=== PATIENT | female | born 1990 | race Caucasian/White ===

== ENCOUNTER 2020-09-23 17:14 | Emergency (ER) | payer OTHER, SELFPAY ==
[2020-09-23 17:26] VITALS: BP 144/82; PULSE 50; RESP 16; TEMP 37.2; O2SAT 95; BMI 29.1
--- NOTE | 2020-09-23 18:07 | MHC.RECOVSUP ---
? Reason for consult Recovery Support o Current location: ED22 o Identified substance use concern: Heroin - Withdrawal - Seeking Support ? Intervention: o Community resources provided o Harm reduction discussion ? Plan: o Patient to follow up with H after discharge ? Additional information: Patient is currently on MAT (methadone). But was very interested in the resources provided. and promises to follow up..
--- NOTE | 2020-09-23 18:08 | ED_ITS ---
HPI - Overdose General Chief Complaint: Overdose Stated Complaint: OVERDOSE Source: patient and EMS Mode of arrival: EMS Limitations: no limitations History of Present Illness HPI Narrative: 30-year-old female with past medical history of opioid dependence on Suboxone presents via EMS for suspected overdose while at work. She was found asleep on the floor, reports using 5 bags of heroin, no Narcan used today. She did not report to be suicidal, stated that this was an unintentional affect and feels that maybe the heroin was laced with fentanyl. She does use heroin on a regular basis, when she is not using heroin she substitute with methadone. She does not report any other concerning symptoms, denies suicidal ideation, homicidal ideation, and auditory and visual hallucinations. Denies chest pain or pressure, palpitations, shortness of breath, abdominal pain, abdominal distention, dysuria, hematuria, diarrhea, and edema. MD complaint: accidental overdose Onset (ago): hour(s) (Within the hour of arrival) Context: Accidental Overdose: wanted to get high Treatments Prior to Arrival: none Review of Systems Review of Systems: Constitutional: No Fever, No Chills ENT/Mouth: No sore throat, No Rhinorrhea Eyes: No Eye Pain, No Swelling, No Redness Cardiovascular: No Chest Pain, No SOB Respiratory: No Cough, No Sputum Gastrointestinal: No Nausea, No Vomiting, No Diarrhea, No abdominal Pain Genitourinary: No Dysuria, No Hematuria Musculoskeletal: No joint pain, No Myalgias, No Joint Swelling Skin: No Skin Lesions, No rash Neuro: No Weakness, No Numbness, No Loss of Consciousness, No Dizziness, No Head ache Psych: Positive heroin abuse, No Anxiety, No Depression, No SI/HI/AH/VH Heme/Lymph: No Bruising, No Bleeding,No Lymphadenopathy Endocrine: No Polyuria, No Polydipsia Yes all other systems are reviewed and are negative [facility] Past Medical History Attestation statement: The following information was validated with the patient. Source: old records reviewed Medical History Asthma Depression Social History Social History Advance Directives: No Advance Directives Information Provided: No Physical Exam Vital Signs: Vital Signs: Last Vital Signs Temp 98.9 F 09/23/20 17:26 Pulse 60 03/02/21 21:31 Resp 18 09/23/20 21:31 BP 114/68 09/23/20 21:31 Pulse Ox 95 09/23/20 17:26 Body Mass Index 29.1 Appearance: Alert. Oriented X3. No acute distress. Eyes: Pupils equal, round and reactive to light. ENT: Pharynx normal. Neck: Normal inspection. Neck supple. CVS: Normal heart rate and rhythm. Pulses normal. Respiratory: No respiratory distress. Breath sounds normal. Abdomen: Soft and nontender. Skin: Skin warm and dry. Normal skin color. Normal skin turgor. Extremities: No lower extremity edema. Moves all extremities spontaneously and against resistance Neuro: No motor deficit. No sensory deficit. Cranial nerves 2-12 intact Course Course Course Narrative: 30-year-old female with no significant past medical history on Suboxone for opioid dependence presents to the emergency department from work after a ?syncopal? episode. She does report using heroin, does not use heroin on a daily basis because of Suboxone use. Patient is not suicidal or homicidal, denies auditory visual hallucinations. Does not have any medical complaints at this time. She is sleepy, awakens to verbal stimulus, answering questions politely and appropriately. 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 Plan of care is to monitor for another hour or 2. 7:22 p.m., patient is sleeping, arousable to voice. O2 sat remains at 96% room air, even unlabored respirations, managing airway and secretions without difficulty. 9:07 p.m., patient easily arousable, states that she can call someone to go home, O2 sat 97% on room air, even unlabored respirations. Plan of care is to discharge home. Patient verbalized understanding of and agrees to plan. MDM - Overdose Differential Diagnosis Differential diagnosis: Likely drug overdose Medical Records Attestation: I reviewed the patient's medical records. Lab Data Attestation: I reviewed the patient's lab results. Discharge Plan Discharge Clinical Impression: Heroin abuse Drug overdose Qualifiers: Encounter type: initial encounter Injury intent: accidental or unintentional Qualified Code(s): T50.901A - Poisoning by unspecified drugs, medicaments and biological substances, accidental (unintentional), initial encounter Patient Disposition: Home, Self-Care Instructions: Opioid Use Disorder (ED) Additional Instructions: Please consider detox. You are lory someone found you unresponsive and was able to get to help. Thank you for choosing this emergency department for evaluation. Please follow-up with primary care physician as needed. Return to the emergency department for any new, concerning, or worsening symptoms. Interventions: ED Discharge Assessment Last Done: 09/23/20 21:34 Discharge Date/Time: 09/23/20 21:35
[2020-09-23 21:31] VITALS: BP 114/68; PULSE 60; RESP 18
== END 2020-09-23 21:35 | disposition home or self-care (01) ==
PROVIDERS: Emergency Provider Emergency Medicine
DX: T49.5X1A Poisoning by ophthalmological drugs and preparations, accidental (unintentional), initial encounter (principal); X58.XXXA Exposure to other specified factors, initial encounter; F11.19 Opioid abuse with unspecified opioid-induced disorder; Z71.51 Drug abuse counseling and surveillance of drug abuser; Z79.899 Other long term (current) drug therapy
CPT/HCPCS: 99284

== ENCOUNTER 2023-08-05 13:15 | Outpatient (AMB) | payer OTHER, SELFPAY ==
--- NOTE | 2023-08-05 14:26 | AM.OFFWIN_ITS ---
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 Reports that symptoms started 2 weeks ago. She was diagnosed with COVID in [facility], and thinks prob these residual symptoms. H/o Asthma, and has been using her rescue inhaler more frequently. Her family sick with the similar symptoms at home. Denies fevers, chills, nausea or vomiting. [facility] Medical History Asthma Depression Social History Patient Tobacco Use Status: Former Tobacco user Review of Systems Const All systems reviewed & are unremarkable except as noted in HPI and below Physical Exam Vital Signs: Last Vital Signs Temp 97.4 F 08/05/23 14:36 Pulse 77 08/05/23 14:36 BP 116/68 08/05/23 14:36 Pulse Ox 97 08/05/23 14:36 Oxygen Delivery Method Room Air 08/05/23 14:36 Const General: no acute distress and ill appearing (uncomfortable ) HEENT Head: Yes normocephalic Ears: TM's normal bilaterally General nose exam: Abnormal mucous membranes and turbinates present boggy and erythematous and Nasal discharge present Mouth: moist mucous membranes Throat: Yes posterior oropharynx normal and Yes uvula midline Resp Effort & Inspection: audible wheezes and Actively coughing Auscultation: no crackles, no rales, no rhonchi and wheezes scattered wheezes and throughout Cardio Rate: regular rate Rhythm: regular rhythm Assessment & Plan Assessment & Plan (1) Wheezing on auscultation: Code(s): R06.2 - Wheezing Plan: - Start Prednisone (2) Cough in adult: Code(s): R05.9 - Cough, unspecified (3) URI, acute: Code(s): J06.9 - Acute upper respiratory infection, unspecified (4) Asthma with acute exacerbation: Code(s): J45.901 - Unspecified asthma with (acute) exacerbation Qualifiers: Asthma persistence: persistent Asthma severity: moderate Qualified Code(s): J45.41 - Moderate persistent asthma with (acute) exacerbation Plan: - Rxd Albuterol rescue inhaler - Rxd symbicort for daily use. Plan - Rxd Albuterol rescue inhaler - Rxd symbicort for daily Orders: Orders SARS-CoV2/FLU/RSV Today J06.9 - Acute upper respiratory infection, unspecified, R05.9 - Cough, unspecified, R06.2 - Wheezing Medications: New amoxicillin 500 mg PO Q12H 10 days 20 caps 0RF J45.41 - Moderate persistent asthma with (acute) exacerbation, R06.2 - Wheezing budesonide-formoterol 80-4.5 mcg/actuation (Symbicort) 2 puffs inhalation BID 10.2 grams 0RF J45.41 - Moderate persistent asthma with (acute) exacerbation, R06.2 - Wheezing albuterol sulfate 90 mcg/actuation 2 inhalations inhalation Q4-6H PRN 8.5 grams 0RF shortness of breath or wheezing J45.41 - Moderate persistent asthma with (acute) exacerbation, R06.2 - Wheezing prednisone 50 mg PO DAILY 5 days 5 tabs 0RF Coding Level of Care Code Est Pt Level 3 (51418) Diagnoses Wheezing on auscultation R06.2 Cough in adult R05.9 URI, acute J06.9 Moderate persistent asthma with acute exacerbation J45.41 Asthma persistence: persistent Asthma severity: moderate Time Spent (min) 15
[2023-08-05 14:36] VITALS: BP 116/68; PULSE 77; TEMP 36.3; O2SAT 97
== END 2023-08-05 15:08 | disposition home or self-care (01) ==
PROVIDERS: Visit Provider Nurse Practitioner Family
DX: J45.41 Moderate persistent asthma with (acute) exacerbation (principal); J06.9 Acute upper respiratory infection, unspecified
CPT/HCPCS: 99213

== ENCOUNTER 2023-08-05 16:14 | Outpatient (REF) | payer OTHER, SELFPAY ==
[2023-08-05 17:04] LABS: Influenza A PCR NEGATIVE (Negative); Influenza B PCR NEGATIVE (Negative); Resp Syncy Virus RNA Qual PCR NEGATIVE (Negative); SARS COV2 PCR INHOUSE NEGATIVE (Negative)
== END 2023-08-05 16:15 | disposition home or self-care (01) ==
LOC: HO.LNP 16:14
PROVIDERS: Visit Provider Nurse Practitioner Family
DX: J06.9 Acute upper respiratory infection, unspecified (principal); R06.2 Wheezing; R05.9 Cough, unspecified; Z11.52 Encounter for screening for COVID-19
CPT/HCPCS: 0241U

== ENCOUNTER 2024-03-10 11:39 | Outpatient (AMB) | payer OTHER, SELFPAY ==
--- NOTE | 2024-03-10 11:59 | AM.OFFWIN_ITS ---
Intake Vital Signs 03/10/24 12:00 Height 5 ft 5 in Weight 218 lb BMI 36.3 BP 118/74 Blood Pressure Location Lt brachial Position Sitting Pulse 68 Pulse Source Pulse Oximeter Temp 98.4 F Temp Source Oral Pulse Oximetry (%) 98 Oxygen Delivery Method Room Air Intake Visit Reasons: EP Migraine Patient Tobacco Use Status: Former Tobacco user Allergies No Known Allergies Allergy (Verified 03/10/24 12:00) Do you need a note to return to daycare/school/sports/work: No HPI EP Migraine HPI Details pt c/o migraine. Ongoing. Does not have PCP. Needs Sumatriptan refill [facility] Medical History Asthma Depression Social History Patient Tobacco Use Status: Former Tobacco user Review of Systems Const Denies chills, Denies fatigue, Denies fever(s), Denies headache(s) and Denies weakness ENT Denies dizziness and Denies headache(s) Card Denies dyspnea Resp Denies cough, Denies dyspnea, Denies wheezing and Denies other ( shortness of breath) Musc Denies numbness and Denies tingling Neuro Details: Migraine headache Denies dizziness, Denies headache(s), Denies numbness, Denies tingling, Denies paresthesias and Denies weakness Psych Denies anxiety and Denies depression Endo Denies fatigue Aller/Immun Denies wheezing Physical Exam Vital Signs: Last Vital Signs Temp 98.4 F 03/10/24 12:00 Pulse 68 03/10/24 12:00 BP 118/74 03/10/24 12:00 Pulse Ox 98 03/10/24 12:00 Oxygen Delivery Method Room Air 03/10/24 12:00 BMI result Body Mass Index 36.3 Const Other: Appears uncomfortable with unilateral headache. General: no acute distress and well developed Nutritional Appearance: well nourished Orientation/consciousness: patient oriented x3 HEENT Head: Yes normocephalic and Yes atraumatic Eyes General: appearance normal, both eyes and all related structures Pupils: Equal, round and reactive pupils present EOM: EOMs intact bilaterally Resp Effort & Inspection: normal respiratory effort Auscultation: clear to auscultation bilaterally Cardio Rate: regular rate Rhythm: regular rhythm Heart sounds: S1 normal heart sound present, S2 normal heart sound present, no gallops, no murmurs and no rubs Neuro General: patient oriented x3 and gait normal Cranial nerves: Yes Equal, round and reactive pupils present Psych Affect: normal affect Assessment & Plan Assessment & Plan (1) Migraines: Code(s): G43.909 - Migraine, unspecified, not intractable, without status migrainosus Plan: Patient with frequent migraines and current migraine today She has been successfully treated with sumatriptan in the past Will give her a script for sumatriptan. Frequent headaches and I advised her to get a primary care physician who can manage frequent migraines long-term. For now, if she needs additional medication she can return to the walk-in Avoid caffeine and other triggers Hydrate well and get plenty of sleep She is scheduled work to 90 and can have a note to be out of work today Medications: New sumatriptan succinate take 1 tab at onset of headache; if no relief may repeat 1 tab after at least 2 hrs; max = 4 tabs/24 hr orally PRN; 30 days 12 tabs 0RF migraine headache Coding Level of Care Code Est Pt Level 3 (81673) Diagnoses Migraines G43.909
[2024-03-10 12:00] VITALS: BP 118/74; PULSE 68; TEMP 36.9; O2SAT 98; BMI 36.3
== END 2024-03-10 12:52 | disposition home or self-care (01) ==
PROVIDERS: Visit Provider Family Medicine
DX: G43.909 Migraine, unspecified, not intractable, without status migrainosus (principal)
CPT/HCPCS: 99051; 99213